=== PATIENT | female | born 1990 | race Caucasian/White ===

== ENCOUNTER → 2018-06-28 | Outpatient (CLI) | payer BC ==
[~2018-06-28] MED LIST: ACET-2031 PO; CLIN25GE3 TP; CLIN30GE15 TP; HYDR-3250 PO; LEV500 PO; SPIR25TA80 PO; [UNRECOGNIZED DRUG - CODE] TOP; [UNRECOGNIZED DRUG - CODE] TP
--- NOTE | 2018-06-28 17:02 | RADIOLOGY IMAGING REPORT ---
FACILITY: [facility] - [place] PATIENT NAME: Seda Simon : 1990 MR: [id number] V: [id number] EXAM DATE: ORDERING PHYSICIAN: PATRICIA PALMA TECHNOLOGIST: Location: [facility] - [place] Patient: Seda Simon : 1990 Visit/Account:[id number] Date of Sevice: 06/28/2018 KIDNEYS EXAMINATION: Renal ultrasound. History: Elevated serum creatinine level COMPARISON STUDIES: CT on pelvis June 19, 2012 FINDINGS: Kidneys: Right kidney- 10.2 x 3.8 x 4.9 cm Left kidney- 9.8 x 4.7 x 4 cm Uniform and symmetric blood flow in each kidney by Doppler ultrasound. Hydronephrosis: none Resistive index on the right is 0.62 and on the left is 0.52 Bladder: Urinary bladder prevoid volume measured 916 mL and postvoid residual 30 mL. Bilateral urete ral jets are present Abdominal aorta and IVC: Aorta and IVC are patent by Doppler ultrasound. IMPRESSION: Unremarkable renal ultrasound as imaged Report Dictated By: Cate Juárez MD at 06/28/2018 4:54 PM Report E-Signed By: Cate Juárez MD at 06/28/2018 4:57 PM WSN:[email or web address]
== END ==
LOC: US 00:15
PROVIDERS: ATTEND Urology
DX: R79.89 Other specified abnormal findings of blood chemistry (principal)
CPT/HCPCS: 76705